=== PATIENT | male | born 1965 | race Caucasian/White ===

== ENCOUNTER 2024-10-16 09:00 | Day surgery (SDC) | payer BC, OTHER ==
[2024-10-16] MEDS: Lactated Ringers 1,000 ML IV SCH (09:33)
[2024-10-16] MEDS ORDERED: Lidocaine 2% 5 ML SDV ONE (10:23)
[2024-10-16] MEDS ORDERED: Propofol 200 MG/20 ML SDV ONE ×2 (10:23→11:14)
== END 2024-10-16 12:15 | disposition home or self-care (01) ==
LOC: MW.SDS 09:00
PROVIDERS: ATTEND Surgery
DX: D12.2 Benign neoplasm of ascending colon (principal); K57.30 Diverticulosis of large intestine without perforation or abscess without bleeding; F17.290 Nicotine dependence, other tobacco product, uncomplicated; Z80.0 Family history of malignant neoplasm of digestive organs
CPT/HCPCS: 45380; 45385; J2704; J7120; 00811; J3490